=== PATIENT | male | born 1990 | race Caucasian/White ===

== ENCOUNTER 2023-05-23 17:22 | Emergency (ER) | payer OTHER, SELFPAY ==
[2023-05-23 17:26] VITALS: BP 170/100; PULSE 63; RESP 18; TEMP 36.6; O2SAT 99
--- NOTE | 2023-05-23 18:14 | ED.DENTAL ---
HPI - Dental/Oral General Chief complaint: Dental/Oral Stated complaint: tooth pain Time Seen by Provider: 05/23/23 18:25 Source: patient Mode of arrival: ambulatory Limitations: no limitations History of Present Illness HPI Narrative: Jairo is a 33-year-old male patient presenting to the ER today with complaints of left upper dental pain. He reports that this has been going on for over 1 week. Was seen in urgent care and given prescription for clindamycin and naproxen. Patient has allergy to penicillin. States that he is on his last dose of clindamycin and the tooth became more swollen and painful today. Cannot get in to see a dentist at this time. He denies any fever or chills. Related Data Allergies Allergy/AdvReac Type Severity Reaction Status Date / Time Penicillins Allergy Unknown Unknown Verified 05/23/23 17:22 Review of Systems Review of Systems: Pertinent positives per HPI. Patient denies any fever, chills, rash, headache, visual changes, dizziness, cough, runny nose, sore throat, shortness of breath, chest pain, palpitations, nausea, vomiting, diarrhea, constipation, abdominal pain, or any urinary issues. PMFSH Comments At the time of my signature, I reviewed and agree with the nursing past medical, surgical, social, and family history. There is no relevant family history pertinent to the patient complaint. Exam Narrative: General: Well-developed, well nourished, in no apparent distress Head: Normocephalic, atraumatic Eyes: Pupils equally round and reactive to light bilaterally, EOM intact, sclera and conjunctive clear, no discharge, lids normal Ears: TMs intact and clear, ear canals clear, no drainage, grossly hearing normal. Nose: Nares patent, no discharge, no inflammation, no sinus tenderness. Mouth: Oropharynx without lesions or masses, poor dentition, MMM. Dental infection to number 15 with redness/swelling to the gum, mild swelling to the left cheek without fluctuance Neck: Supple, trachea midline, no enlargement of anterior or posterior cervical nodes, no thyroid masses or goiter palpable. Cardio: Regular rate and rhythm, s1 and s2 normal, no murmur appreciated. Resp: Clear to auscultation bilaterally anteriorly and posteriorly, no rhonchi, rales, wheezing or rubs Course Course Emergency Course: Portions of this record may have been created with voice recognition software. Vital Signs Vital signs: Vital Signs Temperature 36.6 C 05/23/23 17:26 Pulse Rate 63 05/23/23 17:26 Respiratory Rate 18 05/23/23 17:26 Blood Pressure 170/100 H 05/23/23 17:26 Pulse Oximetry 99 05/23/23 17:26 Oxygen Delivery Room Air 05/23/23 17:26 Temperature 36.6 C 05/23/23 17:26 Pulse Rate 63 05/23/23 17:26 Respiratory Rate 18 05/23/23 17:26 Blood Pressure 170/100 H 05/23/23 17:26 Pulse Oximetry 99 05/23/23 17:26 Oxygen Delivery Room Air 05/23/23 17:26 Vital signs reviewed MDM - Dental/Oral MDM Narrative Medical decision making narrative: At the time of visit patient is resting comfortably on the exam table. Patient appears to be nontoxic. I suspect patient has a dental infection. No palpable abscess. Will place the patient on Levaquin and metronidazole. Recommend follow-up with his dentist as soon as possible. Supportive measures were discussed with the patient and they voiced understanding discharge instructions and agrees to treatment plan. Return precautions reviewed Differential Diagnosis Differential diagnosis: Likely gingival abscess, dental caries, toothache, dental abscess, fracture of tooth and aphthous ulcer Discharge Plan Discharge Clinical Impression: Toothache Patient Disposition: Home, Self-Care Condition: Stable Instructions: Antibiotic Form, Dental Abscess (ED), Toothache (ED) Additional Instructions: Increase fluids and stay well hydrated Take Tylenol/Motrin as needed for pain or fever Take Levaquin and metronidazole
[2023-05-23] MEDS: HYDROcodone/acetaminophen (*CRX) 7.5-325 MG TABLET 1 TAB PO (18:48)
--- NOTE | 2023-05-23 19:05 | PC.NURSE ---
Pt states broken tooth causing pain with no relief from antibiotics & Naproxen. No swelling or breathing difficulty noted.
[2023-05-23 19:06] VITALS: BP 140/88; PULSE 66; RESP 18; TEMP 36.7; O2SAT 98
== END 2023-05-23 19:09 | disposition home or self-care (01) ==
LOC: ANHED 18:39
PROVIDERS: Emergency Provider Nurse Practitioner Family
DX: K08.89 Other specified disorders of teeth and supporting structures (principal)
CPT/HCPCS: 99283; A9270